=== PATIENT | male | born 1950 | race American Indian/Alaskan Native ===

== ENCOUNTER 2020-01-01 12:59 | Inpatient (IN) | payer MEDICARE ==
--- NOTE | 2020-01-01 13:17 | Emergency Department Report ---
ED General Adult HPI - General Chief complaint: Altered Mental Status Stated complaint: AMS/FEVER/COUGH Time Seen by Provider: 01/01/20 13:12 Source: EMS Mode of arrival: Wheelchair Limitations: Other - History of Present Illness Initial comments: Patient is a 69-year-old gentleman from [place] who is presenting with altered mental status. Paramedics were called to his home by unknown female who states that he is headache cough for approximately 2 weeks with fever for 1 week and was had some altered mental status starting this morning. Last known well time regarding the neurological deficits is unknown. Patient does not appear confused and is unable to give history. The patient is only able to tell me his name and that he is okay. Patient would not respond verbally to questions such as does he know the year, who he lives with, with the date is, or if he has had a cough recently. Patient will respond quickly to verbal commands related to moving his arms and legs. - Related Data Allergies Allergy/AdvReac Type Severity Reaction Status Date / Time Unable to Assess Allergy Unverified 01/01/20 13:49 ED Review of Systems ROS: Stated complaint: AMS/FEVER/COUGH Other details as noted in HPI Comment: Unobtainable due to pts medical conditions ED Physical Exam - General Limitations: Other General appearance: alert, in no apparent distress - Head Head exam: Present: atraumatic, normocephalic - Eye Eye exam: Present: normal appearance - ENT ENT exam: Present: mucous membranes moist - Neck Neck exam: Present: normal inspection - Respiratory Respiratory exam: Present: normal lung sounds bilaterally. Absent: respiratory distress, wheezes, rales, rhonchi - Cardiovascular Cardiovascular Exam: Present: regular rate, normal rhythm, normal heart sounds. Absent: systolic murmur, diastolic murmur, rubs, gallop - GI/Abdominal GI/Abdominal exam: Present: soft, normal bowel sounds. Absent: distended, tenderness, guarding, rebound - Rectal Rectal exam: Present: deferred - Extremities Exam Extremities exam: Present: normal inspection - Back Exam Back exam: Present: normal inspection - Neurological Exam Neurological exam: Present: alert, altered (Patient is very slow to respond to questions. Patient seems to only be able to answer certain questions). Absent: motor sensory deficit - Psychiatric Psychiatric exam: Present: normal affect, normal mood - Skin Skin exam: Present: warm, dry, intact, normal color. Absent: rash ED Course Vital Signs 01/01/20 01/01/20 01/01/20 13:14 13:15 13:31 Temperature Pulse Rate 60 71 Respiratory 20 22 Rate Blood Pressure 138/93 O2 Sat by Pulse 99 100 99 Oximetry 01/01/20 01/01/20 14:05 14:15 Temperature 98.2 F Pulse Rate 79 Respiratory 24 Rate Blood Pressure 146/95 O2 Sat by Pulse 99 Oximetry - Reevaluation(s) Reevaluation #1: 01/01/20 15:09 At this time rechecked the patient and he appears to be talking in full sentences at this time. Patient states he does not remember not being able to speak well on his arrival. Patient states that he is staying in hotel with a lady named Selena. We will attempt to contact her. He does admit to having a cough with some shortness of breath for the last several days. Regarding the patient's respiratory status he is in no respiratory distress at this time and is afebrile with a normal O2 saturation. Patient is stable in this regard. Patient to be admitted for observation secondary to likely TIA. Patient was having expressive aphasia on his arrival but is now showing improvement of his neurological symptoms. 01/01/20 15:19 ED Medical Decision Making - Lab Data Result diagrams: 01/01/20 13:28 01/01/20 13:28 Lab Results 01/01/20 01/01/20 01/01/20 Range/Units 13:28 13:28 13:28 WBC 4.2 L (4.5-11.0) K/mm3 RBC 4.33 (3.65-5.03) M/mm3 Hgb 12.8 (11.8-15.2) gm/dl Hct 37.7 (35.5-45.6) % MCV 87 (84-94) fl MCH 30 (28-32) pg MCHC 34 (32-34) % RDW 14.3 (13.2-15.2) % Plt Count 482 H (140-440) K/mm3 Lymph % (Auto) 22.5 (13.4-35.0) % Early % (Auto) 13.4 H (0.0-7.3) % Eos % (Auto) 0.7 (0.0-4.3) % Baso % (Auto) 0.9 (0.0-1.8) % Lymph # 1.0 L (1.2-5.4) K/mm3 Early # 0.6 (0.0-0.8) K/mm3 Eos # 0.0 (0.0-0.4) K/mm3 Baso # 0.0 (0.0-0.1) K/mm3 Seg Neutrophils % 62.5 (40.0-70.0) % Seg Neutrophils # 2.7 (1.8-7.7) K/mm3 PT 14.2 (12.2-14.9) Sec. INR 1.09 (0.87-1.13) APTT 28.4 (24.2-36.6) Sec. Thrombin Time 18.9 (15.1-19.6) Sec. Sodium (137-145) mmol/L Potassium (3.6-5.0) mmol/L Chloride (98-107) mmol/L Carbon Dioxide (22-30) mmol/L Anion Gap mmol/L BUN (9-20) mg/dL Creatinine (0.8-1.5) mg/dL Estimated GFR ml/min BUN/Creatinine Ratio % Glucose (75-100) mg/dL POC Glucose (70-105) Calcium (8.4-10.2) mg/dL Total Bilirubin (0.1-1.2) mg/dL AST (5-40) units/L ALT (7-56) units/L Alkaline Phosphatase (35-129) units/L Total Creatine Kinase 414 H (55-170) units/L CK-MB (CK-2) 6.8 H (0.0-4.0) ng/mL CK-MB (CK-2) Rel Index 1.6 (0-4) Troponin T 0.025 (0.00-0.029) ng/mL Total Protein (6.3-8.2) g/dL Albumin (3.9-5) g/dL Albumin/Globulin Ratio % Plasma/Serum Alcohol (0-0.07) % 01/01/20 01/01/20 01/01/20 Range/Units 13:28 13:28 13:29 WBC (4.5-11.0) K/mm3 RBC (3.65-5.03) M/mm3 Hgb (11.8-15.2) gm/dl Hct (35.5-45.6) % MCV (84-94) fl MCH (28-32) pg MCHC (32-34) % RDW (13.2-15.2) % Plt Count (140-440) K/mm3 Lymph % (Auto) (13.4-35.0) % Early % (Auto) (0.0-7.3) % Eos % (Auto) (0.0-4.3) % Baso % (Auto) (0.0-1.8) % Lymph # (1.2-5.4) K/mm3 Early # (0.0-0.8) K/mm3 Eos # (0.0-0.4) K/mm3 Baso # (0.0-0.1) K/mm3 Seg Neutrophils % (40.0-70.0) % Seg Neutrophils # (1.8-7.7) K/mm3 PT (12.2-14.9) Sec. INR (0.87-1.13) APTT (24.2-36.6) Sec. Thrombin Time (15.1-19.6) Sec. Sodium 138 (137-145) mmol/L Potassium 4.0 (3.6-5.0) mmol/L Chloride 100.9 (98-107) mmol/L Carbon Dioxide 21 L (22-30) mmol/L Anion Gap 20 mmol/L BUN 14 (9-20) mg/dL Creatinine 0.9 (0.8-1.5) mg/dL Estimated GFR > 60 ml/min BUN/Creatinine Ratio 16 % Glucose 115 H (75-100) mg/dL POC Glucose 102 (70-105) Calcium 9.4 (8.4-10.2) mg/dL Total Bilirubin 0.80 (0.1-1.2) mg/dL AST 26 (5-40) units/L ALT 29 (7-56) units/L Alkaline Phosphatase 49 (35-129) units/L Total Creatine Kinase (55-170) units/L CK-MB (CK-2) (0.0-4.0) ng/mL CK-MB (CK-2) Rel Index (0-4) Troponin T (0.00-0.029) ng/mL Total Protein 7.6 (6.3-8.2) g/dL Albumin 4.0 (3.9-5) g/dL Albumin/Globulin Ratio 1.1 % Plasma/Serum Alcohol < 0.01 (0-0.07) % - Radiology Data Ordering Physician: KRISTOPHER ARROYO MD Date of Service: 01/01/20 Procedure(s): XR chest 1V ap Accession Number(s): [id number] cc: KRISTOPHER ARROYO MD Fluoro Time In Minutes: CHEST 1 VIEW 01/01/2020 1:10 PM INDICATION / CLINICAL INFORMATION: cough, fever. COMPARISON: None available. FINDINGS: SUPPORT DEVICES: None. HEART / MEDIASTINUM: No significant abnormality. LUNGS / PLEURA: No significant pulmonary or pleural abnormality. No pneumothorax. ADDITIONAL FINDINGS: No significant additional findings. IMPRESSION: 1. No acute abnormality of the chest. Signer Name: Rajesh Diaz MD Signed: 01/01/2020 2:15 PM Workstation Name: [id number] Ordering Physician: KRISTOPHER ARROYO MD Date of Service: 01/01/20 Procedure(s): CT head/brain wo con Accession Number(s): [id number] cc: KRISTOPHER ARROYO MD CT head/brain wo con INDICATION / CLINICAL INFORMATION: 69 years Male; MAIN: CODE STROKE #[id number] Stroke symptoms EMS DID NOT BRING PT TO CT CT WAS DELAYED NO NURSE WITH THE PT--PT SEEMS ALTERED AND UNABLE TO ANSWER QUESTIONS. TECHNIQUE: Routine CT head without contrast. All CT scans at this location are performed using CT dose reduction for ALARA by means of automated exposure control. COMPARISON: None. FINDINGS: BRAIN / INTRACRANIAL CONTENTS: No acute hemorrhage, mass effect, midline shift, hydrocephalus, or acute, large territorial infarct. No chronic infarct or atrophy appreciated. Minimal, nonspecific white matter disease seen in the cerebral hemispheres. CRANIOCERVICAL JUNCTION: No significant abnormality. ORBITS: No significant abnormality of visualized orbits. SINUSES / MASTOIDS: No significant abnormality the visualized paranasal sinuses or mastoid air cells. ADDITIONAL FINDINGS: Normal atherosclerotic disease is seen in the minimal anterior circulation. IMPRESSION: 1. No focal mass, hemorrhage, hydrocephalus, or acute, large territorial infarct. This exam was performed as part of a code stroke protocol. The exam was completed on 01/01/2020 1:34 PM central standard time. The exam was reviewed at 1:[address] Arroyo was notified at 1:41 PM. Signer Name: Jamir Lundy MD, III Signed: 01/01/2020 2:42 PM Workstation Name: [id number] Critical care attestation.: If time is entered above; I have spent that time in minutes in the direct care of this critically ill patient, excluding procedure time. ED Disposition Clinical Impression: Altered mental status, TIA (transient ischemic attack) Disposition: DC-09 OP ADMIT IP TO THIS HOSP Is pt being admited?: Yes Does the pt Need Aspirin: Yes Condition: Stable Time of Disposition: 15:22 - Assessment Assessment Interval: Baseline - Level of Consciousness 1a. Level of Consciousness: alert/keenly responsive - LOC Questions 1b. LOC Questions: answers 1 question correctly - LOC Command 1c. LOC Commands: performs 1 task correctly - Best Gaze 2. Best Gaze: normal - Visual 3. Visual: no visual loss - Facial Palsy 4. Facial Palsy: normal symmetrical movement - Motor Arm 5a. Motor Arm Left: no drift 5b. Motor Arm Right: no drift - Motor Leg 6a. Motor Leg Left: no drift 6b. Motor Leg Right: no drift - Limb Ataxia 7. Limb Ataxia: absent - Sensory 8. Sensory: normal - Best Language 9. Best Language: mild/moderate aphasia - Dysarthria 10. Dysarthria: normal - Extinction and Inattention 11. Extinction/Inattention: no abnormality - Scoring Total Score: 3 Stroke Severity: Minor Stroke
--- NOTE | 2020-01-01 13:38 | Emergency Department Report ---
ED Neuro Deficit HPI - General Chief Complaint: Altered Mental Status Stated Complaint: AMS/FEVER/COUGH Time Seen by Provider: 01/01/20 13:12 Source: EMS Mode of arrival: Wheelchair Limitations: Altered Mental Status, Other - History of Present Illness Initial Comments: [facility] TeleStroke Metrics: LKW: Unknown Door Time: 1259 [facility] Contacted: 1311 [facility] at Bedside: 1316 NIHSS: 1324 Decision on Alteplase: Not to give as his last known well time is unknown. Interventional Candidate: Not a candidate as his symptoms are not consistent with a large vessel proximal occlusion. Chief Complaint: Altered mental status HPI: Asked to see this patient in emergent telemedicine consultation utilizing interactive audio and video technologies. Consultation was performed with assistance of ancillary / medical staff at bedside. Verbal consent to perform the examination with telemedicine was obtained. Patient agreed to proceed with the consultation for acute stroke protocol. 69-year-old -[place] male who comes to the emergency room by EMS for altered mental status, fever, and cough. Patient is slow to respond and is a poor historian. Patient denies any significant past medical history and states he does not take any medications. According to the ER team, the patient's lady friend had called EMS because the patient was found wandering and confused. She had reported to EMS that the patient had been having coughing for 2 weeks and fever x1 week. Patient's last known well time is unknown. When the patient initially arrived in the ER, he really did not talk much or interact much. There was some concerns for an expressive aphasia. Therefore a stroke alert was initiated. Currently on examination, the patient is awake. He was more slow to respond to things. He was able to tell us his name and half of his date of . He was able to follow some commands. PMH: Denies. SOC: Lives with some type of roommate. Negative for tobacco abuse. FMH: Negative for stroke. ROS: 13 point review of systems were reviewed with the patient, and are all negative with the exception of the aforementioned in the history of present illness. VS: EMS temperature was 97.4 F. Blood pressure 138/93 Exam: Patient is in no apparent distress. Patient appears as stated age. No obvious acute respiratory or cardiac distress. Patient is well groomed and well-nourished. 1a- LOC: Keenly responsive - 0 1b- LOC questions: Answers 1 question correctly - 1 1c- LOC commands- Performs 1 tasks correctly- 1 2- Gaze: Normal; no gaze paresis or gaze deviation - 0 3- Visual Lopez: normal, no Visual field deficit - 0 4- Facial movements: no facial palsy - 0 5- Upper limb motor - no drift - 0 6- Lower limb motor - no drift - 0 7- Limb Coordination: absent ataxia - 0 8- Sensory: no sensory loss - 0 9- Language - No aphasia - 0 10- Speech - No dysarthria -0 11- Neglect / Extinction - none found - 0 NIHSS score: 2 Diagnostic Data: Blood glucose 102 CT head pending Medical Data Reviewed: 1.Data?reviewed include clinical labs, radiology,?and medical tests; 2.Tests?results discussed w/performing or interpreting physician; 3.Obtaining/reviewing old medical records; 4.Obtaining?case history from another source; 5.Independent?review of image, tracing, or specimen. Medical Decision Making: - Extensive number of diagnosis or management options are considered below. - Extensive amount of complex data reviewed. - High risk of complication and/or morbidity or mortality are associated with differential diagnostic considerations below. - There may be?uncertain?outcome and increased probability of prolonged functional impairment or high probability of severe prolonged functional impairment associated with some of these differential diagnosis. Differential Diagnosis for Stroke: 1.?Cardioembolic?stroke 2. Small vessel disease/lacune 3. Thromboembolic, rgnnhz-to-sdbcmc mechanism 4.?Hypercoagulable?state-related infarct 5. Transient ischemic attack 6. Thrombotic mechanism, large artery disease Assessment: 1. Altered mental status Recommendations: Patient can be admitted to the hospital for further work-up of his symptoms. Metabolic and infectious work-up per primary team. Can check MRI brain without contrast to rule out any acute intracranial process. Check hemoglobin A1c, lipid panel, TSH, B12 level, and ammonia level. Consult PT, OT, and ST. Continue supportive care. Thank you for allowing [facility] to participate in the care of your patient. Please call me, Dr. Mccracken, with any questions at [phone]. Case discussed with the ER staff and Dr. Arroyo. Critical Care notation: I was called to see this critical patient emergently. I personally evaluated this critical patient for acute stroke evaluation, and determining their eligibility for IV Alteplase and interventional therapies. I have spent approximately 11 minutes with the patient, including time at bedside, time discussing the case with other physicians, reviewing plan of care, and time independently reviewing the records and scans. ED Review of Systems ROS: Stated complaint: AMS/FEVER/COUGH Other details as noted in HPI ED Neuro Physical Exam - General Limitations: Other Suspected Stroke: No - Lab Data Lab Results 01/01/20 Range/Units 13:29 POC Glucose 102 (70-105) Critical care attestation.: If time is entered above; I have spent that time in minutes in the direct care of this critically ill patient, excluding procedure time. ED Disposition Clinical Impression: Altered mental status Disposition: DC-09 OP ADMIT IP TO THIS HOSP Is pt being admited?: Yes Does the pt Need Aspirin: No Condition: Stable
[2020-01-01 13:51] LABS: Basophils % (Auto) 0.9 % (0.0-1.8); Eosinophils % (Auto) 0.7 % (0.0-4.3); Hematocrit 37.7 % (35.5-45.6); Hemoglobin 12.8 gm/dl (11.8-15.2); Lymphocytes % (Auto) 22.5 % (13.4-35.0); Mean Corpuscular HGB Conc 34 % (32-34); Mean Corpuscular Volume 87 fl (84-94); Monocytes # (Auto) 0.6 K/mm3 (0.0-0.8); Monocytes % (Auto) 13.4 % (0.0-7.3); Platelet Count 482 K/mm3 (140-440); Red Blood Count 4.33 M/mm3 (3.65-5.03); Red Cell Distribution Width 14.3 % (13.2-15.2)
[2020-01-01 14:00] LABS: INR 1.09 (0.87-1.13)
[2020-01-01 14:01] LABS: Partial Thromboplastin Time 28.4 Sec. (24.2-36.6); Thrombin Time 18.9 Sec. (15.1-19.6)
[2020-01-01 14:11] LABS: Creatine Kinase MB 6.8 ng/mL (0.0-4.0)
[2020-01-01 14:13] LABS: Alanine Aminotransferase 29 units/L (7-56); BUN/Creatinine Ratio 16; Blood Urea Nitrogen 14 mg/dL (9-20); Calcium 9.4 mg/dL (8.4-10.2); Hemolysis Index 10
--- NOTE | 2020-01-01 14:19 | XRay Report ---
CHEST 1 VIEW 01/01/2020 1:10 PM INDICATION / CLINICAL INFORMATION: cough, fever. COMPARISON: None available. FINDINGS: SUPPORT DEVICES: None. HEART / MEDIASTINUM: No significant abnormality. LUNGS / PLEURA: No significant pulmonary or pleural abnormality. No pneumothorax. ADDITIONAL FINDINGS: No significant additional findings. IMPRESSION: 1. No acute abnormality of the chest. Signer Name: Rajesh Diaz MD Signed: 01/01/2020 2:15 PM Workstation Name: [id number]
--- NOTE | 2020-01-01 14:46 | Cat Scan Report ---
CT head/brain wo con INDICATION / CLINICAL INFORMATION: 69 years Male; MAIN: CODE STROKE #[id number] Stroke symptoms EMS DID NOT BRING PT TO CT CT WAS DE LAYED NO NURSE WITH THE PT--PT SEEMS ALTERED AND UNABLE TO ANSWER QUESTIONS. TECHNIQUE: Routine CT head without contrast. All CT scans at this location are performed using CT dos e reduction for ALARA by means of automated exposure control. COMPARISON: None. FINDINGS: BRAIN / INTRACRANIAL CONTENTS: No acute hemorrhage, mass effect, midline shift, hydrocephalus, or acu te, large territorial infarct. No chronic infarct or atrophy appreciated. Minimal, nonspecific white matter disease seen in the cerebral hemispheres. CRANIOCERVICAL JUNCTION: No significant abnormality. ORBITS: No significant abnormality of visualized orbits. SINUSES / MASTOIDS: No significant abnormality the visualized paranasal sinuses or mastoid air cells. ADDITIONAL FINDINGS: Normal atherosclerotic disease is seen in the minimal anterior circulation. IMPRESSION: 1. No focal mass, hemorrhage, hydrocephalus, or acute, large territorial infarct. This exam was performed as part of a code stroke protocol. The exam was completed on 01/01/2020 1:34 P M central standard time. The exam was reviewed at 1:[address] Arroyo was notified at 1:41 PM. Signer Name: Jamir Lundy MD, III Signed: 01/01/2020 2:42 PM Workstation Name: [id number]
[2020-01-01] MEDS ORDERED: ASPIRIN 325 MG TAB PO ONE (15:21)
[2020-01-01] MEDS ORDERED: ACETAMINOPHEN 325 MG TAB PO PRN (16:04)
[2020-01-01] MEDS ORDERED: ONDANSETRON 4 MG/2 ML INJ IV PRN (16:04)
--- NOTE | 2020-01-01 18:17 | History and Physical Report ---
History of Present Illness Date of admission: 01/01/20 16:04 Chief complaint: He is confused and forgetful History of present illness: 69 YO Male with Dementia presents to ED for evaluation. Patient is ambulating in his room at the time of my evaluation. Patient states that he "came to the hospital to get my urine checked". Patient is cooperative but exhibits difficulty with short-term memory. Patient reports that he was seen and evaluated by his primary care doctor approximately 1 week ago and is not currently taking any medication. EMS was notified by patient's roommate for increased confusion and forgetfulness over the past week with persistent symptoms over the same timeframe. Upon arrival the patient was found to be in distress and subsequently transported to [facility] for further care and evaluation. Patient seen and evaluated in the emergency department. Lab and imaging studies reviewed. Patient found to have symptoms consistent with encephalopathy versus senile dementia. Patient placed in observation status and admitted to [facility] unit. No prior admission for review. No medication listed at time of admission for reconciliation. Patient denies fever, chills, chest pain, palpitations, shortness of breath, skin rash, or recent ill contacts. Advanced care planning conducted in ED. Past History Past Medical History: No medical history, other (None reported) Past Surgical History: No surgical history, Other (Reviewed) Social history: single. denies: smoking, alcohol abuse, prescription drug abuse Family history: no significant family history (Reviewed) Medications and Allergies Allergies Allergy/AdvReac Type Severity Reaction Status Date / Time Unable to Assess Allergy Unverified 01/01/20 13:49 Home Medications Medication Instructions Recorded Confirmed Last Taken Type Unobtainable 01/01/20 01/01/20 Unknown History Active Meds: Active Medications Acetaminophen (Tylenol) 650 mg PO Q4H PRN PRN Reason: Pain MILD(1-3)/Fever >100.5/VALDEZ Ondansetron HCl (Zofran) 4 mg IV Q8H PRN PRN Reason: Nausea And Vomiting Sodium Chloride (Sodium Chloride Flush Syringe 10 Ml) 10 ml IV BID BROCK Sodium Chloride (Sodium Chloride Flush Syringe 10 Ml) 10 ml IV PRN PRN PRN Reason: LINE FLUSH Review of Systems ROS unobtainable: due to mental status Exam - Constitutional Vitals: Temp Pulse Resp BP Pulse Ox 98.2 F 70 21 156/101 99 01/01/20 14:05 01/01/20 16:15 01/01/20 16:15 01/01/20 16:15 01/01/20 16:15 General appearance: Present: no acute distress, well-nourished - EENT Eyes: Present: PERRL ENT: hearing intact, clear oral mucosa - Neck Neck: Present: supple, normal ROM - Respiratory Respiratory effort: normal Respiratory: bilateral: CTA - Cardiovascular Heart Sounds: Present: S1 & S2. Absent: rub, click - Extremities Extremities: pulses symmetrical, No edema Peripheral Pulses: within normal limits - Abdominal General gastrointestinal: Present: soft, non-tender, non-distended, normal bowel sounds Male genitourinary: Present: normal - Integumentary Integumentary: Present: clear, warm, dry - Musculoskeletal Musculoskeletal: gait normal, strength equal bilaterally - Psychiatric Psychiatric: appropriate mood/affect, intact judgment & insight - Neurologic Neurologic: CNII-XII intact, moves all extremities Results - Labs CBC & Chem 7: 01/01/20 13:28 01/01/20 13:28 Labs: Abnormal lab results 01/01/20 01/01/20 01/01/20 Range/Units 13:28 13:28 13:28 WBC 4.2 L (4.5-11.0) K/mm3 Plt Count 482 H (140-440) K/mm3 [place] % (Auto) 13.4 H (0.0-7.3) % Lymph # 1.0 L (1.2-5.4) K/mm3 Carbon Dioxide 21 L (22-30) mmol/L Glucose 115 H (75-100) mg/dL Total Creatine Kinase 414 H (55-170) units/L CK-MB (CK-2) 6.8 H (0.0-4.0) ng/mL Assessment and Plan - Patient Problems (1) Encephalopathy Current Visit: Yes Status: Acute Plan to address problem: CT head, neuro check, aspiration precautions, thyroid panel, CBC, CMP, urinalysis. (2) Senile dementia Current Visit: Yes Status: Acute Qualifiers: Dementia behavioral disturbance: without behavioral disturbance Qualified C ode(s): F03.90 - Unspecified dementia without behavioral disturbance Plan to address problem: Supportive care, initiate Aricept therapy. (3) DVT prophylaxis Current Visit: Yes Status: Acute Plan to address problem: SCD to bilateral lower extremities while in bed, patient is ambulatory.
[2020-01-01 20:47] LABS: Chol/HDL Ratio 4.12 %
[2020-01-01 20:57] LABS: Free T4 (Free Thyroxine) 1.38 ng/dL (0.76-1.46)
[2020-01-01 23:07] LABS: C-Reactive Protein 0.1 mg/dL (0.00-1.30)
[2020-01-01] MEDS: DONEPEZIL 5 MG TAB PO SCH (23:10)
--- NOTE | 2020-01-02 08:19 | Progress Note ---
Assessment and Plan Assessment and plan: Encephalopathy CT head, neuro check, aspiration precautions, thyroid panel, CBC, CMP, urinalysis. Senile dementia Supportive care, initiate Aricept therapy. COVID-19 suspected Patient reportedly with cough and transferred to special unit. Check with nurses for details. DVT prophylaxis SCD to bilateral lower extremities while in bed, patient is ambulatory. History Interval history: No new issues overnight Hospitalist Physical - Constitutional Vitals: Temp Pulse Resp BP Pulse Ox 98.5 F 66 18 128/87 94 01/02/20 05:31 01/02/20 05:31 01/02/20 05:31 01/02/20 05:31 01/02/20 05:31 General appearance: Present: no acute distress, well-nourished - EENT Eyes: Present: PERRL, EOM intact ENT: hearing intact, clear oral mucosa, dentition normal - Neck Neck: Present: supple, normal ROM - Respiratory Respiratory effort: normal Respiratory: bilateral: CTA - Cardiovascular Rhythm: regular Heart Sounds: Present: S1 & S2. Absent: gallop, rub - Extremities Extremities: no ischemia, No edema, Full ROM - Abdominal General gastrointestinal: soft, non-tender, non-distended, normal bowel sounds - Integumentary Integumentary: Present: clear, warm, dry - Neurologic Neurologic: CNII-XII intact, moves all extremities Results - Labs CBC & Chem 7: 01/01/20 13:28 01/01/20 22:23 Labs: Laboratory Last Values WBC 4.2 K/mm3 (4.5-11.0) L 01/01/20 13:28 RBC 4.33 M/mm3 (3.65-5.03) 01/01/20 13:28 Hgb 12.8 gm/dl (11.8-15.2) 01/01/20 13:28 Hct 37.7 % (35.5-45.6) 01/01/20 13:28 MCV 87 fl (84-94) 01/01/20 13:28 MCH 30 pg (28-32) 01/01/20 13:28 MCHC 34 % (32-34) 01/01/20 13:28 RDW 14.3 % (13.2-15.2) 01/01/20 13:28 Plt Count 482 K/mm3 (140-440) H 01/01/20 13:28 Lymph % (Auto) 22.5 % (13.4-35.0) 01/01/20 13:28 [place] % (Auto) 13.4 % (0.0-7.3) H 01/01/20 13:28 Eos % (Auto) 0.7 % (0.0-4.3) 01/01/20 13:28 Baso % (Auto) 0.9 % (0.0-1.8) 01/01/20 13:28 Lymph # 1.0 K/mm3 (1.2-5.4) L 01/01/20 13:28 [place] # 0.6 K/mm3 (0.0-0.8) 01/01/20 13:28 Eos # 0.0 K/mm3 (0.0-0.4) 01/01/20 13:28 Baso # 0.0 K/mm3 (0.0-0.1) 01/01/20 13:28 Seg Neutrophils % 62.5 % (40.0-70.0) 01/01/20 13:28 Seg Neutrophils # 2.7 K/mm3 (1.8-7.7) 01/01/20 13:28 PT 14.2 Sec. (12.2-14.9) 01/01/20 13:28 INR 1.09 (0.87-1.13) 01/01/20 13:28 APTT 28.4 Sec. (24.2-36.6) 01/01/20 13:28 Thrombin Time 18.9 Sec. (15.1-19.6) 01/01/20 13:28 D-Dimer 404.12 ng/mlDDU (0-234) H 01/01/20 22:23 Sodium 138 mmol/L (137-145) 01/01/20 13:28 Potassium 4.0 mmol/L (3.6-5.0) 01/01/20 13:28 Chloride 100.9 mmol/L (98-107) 01/01/20 13:28 Carbon Dioxide 21 mmol/L (22-30) L 01/01/20 13:28 Anion Gap 20 mmol/L 01/01/20 13:28 BUN 14 mg/dL (9-20) 01/01/20 13:28 Creatinine 0.9 mg/dL (0.8-1.5) 01/01/20 13:28 Estimated GFR > 60 ml/min 01/01/20 13:28 BUN/Creatinine Ratio 16 % 01/01/20 13:28 Glucose 141 mg/dL (75-100) H 01/01/20 22:23 POC Glucose 114 (70-105) H 01/01/20 22:31 Calcium 9.4 mg/dL (8.4-10.2) 01/01/20 13:28 Ferritin 909.6 ng/mL (13.0-400.0) H 01/01/20 22:23 Total Bilirubin 0.80 mg/dL (0.1-1.2) 01/01/20 13:28 AST 26 units/L (5-40) 01/01/20 13:28 ALT 29 units/L (7-56) 01/01/20 13:28 Alkaline Phosphatase 49 units/L (35-129) 01/01/20 13:28 Lactate Dehydrogenase 397 units/L (91-180) H 01/01/20 22:23 Total Creatine Kinase 414 units/L (55-170) H 01/01/20 13:28 CK-MB (CK-2) 6.8 ng/mL (0.0-4.0) H 01/01/20 13:28 CK-MB (CK-2) Rel Index 1.6 (0-4) 01/01/20 13:28 Troponin T 0.025 ng/mL (0.00-0.029) 01/01/20 13:28 C-Reactive Protein 0.10 mg/dL (0.00-1.30) 01/01/20 22:23 Total Protein 7.6 g/dL (6.3-8.2) 01/01/20 13:28 Albumin 4.0 g/dL (3.9-5) 01/01/20 13:28 Albumin/Globulin Ratio 1.1 % 01/01/20 13:28 Triglycerides 74 mg/dL (2-149) 01/01/20 13:28 Cholesterol 169 mg/dL (50-199) 01/01/20 13:28 LDL Cholesterol Direct 119 mg/dL (50-130) 01/01/20 13:28 HDL Cholesterol 41 mg/dL (40-59) 01/01/20 13:28 Cholesterol/HDL Ratio 4.12 % 01/01/20 13:28 Procalcitonin < 0.05 ng/mL (<0.15) 01/01/20 22:23 TSH 1.630 mlU/mL (0.270-4.200) 01/01/20 13:28 Free T4 1.38 ng/dL (0.76-1.46) 01/01/20 13:28 Plasma/Serum Alcohol < 0.01 % (0-0.07) 01/01/20 13:28 Johns/IV: Voiding Method Toilet IV Catheter Type [Left INT / Saline Lock Antecubital] Active Medications - Current Medications Current Medications: Generic Name Dose Route Start Last Admin Trade Name Freq PRN Reason Stop Dose Admin Acetaminophen 650 mg 01/01/20 16:04 Tylenol PO Q4H PRN Pain MILD(1-3)/Fever >100.5/VALDEZ Donepezil HCl 5 mg 01/01/20 22:00 01/01/20 23:10 Aricept PO 5 mg QHS BROCK Administration Ondansetron HCl 4 mg 01/01/20 16:04 Zofran IV Q8H PRN Nausea And Vomiting Sodium Chloride 10 ml 01/01/20 22:00 01/01/20 23:10 Sodium Chloride Flush Syringe 10 Ml IV 10 ml BID BROCK Administration Sodium Chloride 10 ml 01/01/20 16:04 Sodium Chloride Flush Syringe 10 Ml IV PRN PRN LINE FLUSH
[2020-01-02] MEDS: amLODIPine 5 MG TAB PO SCH (16:53)
[2020-01-02] MEDS: DONEPEZIL 5 MG TAB PO SCH (22:05)
[2020-01-03] MEDS ORDERED: LORazepam 2 MG/ML VIAL IV ONE (01:15)
--- NOTE | 2020-01-03 09:03 | Progress Note ---
Assessment and Plan Assessment and plan: Encephalopathy CT head, neuro check, aspiration precautions, thyroid panel, CBC, CMP, urinalysis. Senile dementia Supportive care, initiate Aricept therapy. COVID-19 suspected Patient reportedly with cough and transferred to special unit. Check with nurses for details. DVT prophylaxis SCD to bilateral lower extremities while in bed, patient is ambulatory. 01/03/2020. The patient is satting 98% on room air. Inflammatory markers are mildly elevated with d-dimer 404, ferritin 909, LDH 397 and CRP normal. COVID suspicion low. We will hold on ID consultation at this time. Await COVID-19 testing. Consult neurology for encephalopathy. CT scan revealed no acute hemorrhage, mass-effect, midline shift, hydrocephalus or acute infarct. History Interval history: No new issues overnight Hospitalist Physical - Constitutional Vitals: Temp Pulse Resp BP Pulse Ox 97.8 F 94 H 18 125/82 98 01/03/20 06:44 01/03/20 06:44 01/03/20 06:44 01/03/20 06:44 01/03/20 08:25 General appearance: Present: no acute distress, well-nourished - EENT Eyes: Present: PERRL, EOM intact ENT: hearing intact, clear oral mucosa, dentition normal - Neck Neck: Present: supple, normal ROM - Respiratory Respiratory effort: normal Respiratory: bilateral: CTA - Cardiovascular Rhythm: regular Heart Sounds: Present: S1 & S2. Absent: gallop, rub - Extremities Extremities: no ischemia, No edema, Full ROM - Abdominal General gastrointestinal: soft, non-tender, non-distended, normal bowel sounds - Integumentary Integumentary: Present: clear, warm, dry - Neurologic Neurologic: CNII-XII intact, moves all extremities Results - Labs CBC & Chem 7: 01/01/20 13:28 01/01/20 22:23 Labs: Laboratory Last Values WBC 4.2 K/mm3 (4.5-11.0) L 01/01/20 13:28 RBC 4.33 M/mm3 (3.65-5.03) 01/01/20 13:28 Hgb 12.8 gm/dl (11.8-15.2) 01/01/20 13:28 Hct 37.7 % (35.5-45.6) 01/01/20 13:28 MCV 87 fl (84-94) 01/01/20 13:28 MCH 30 pg (28-32) 01/01/20 13:28 MCHC 34 % (32-34) 01/01/20 13:28 RDW 14.3 % (13.2-15.2) 01/01/20 13:28 Plt Count 482 K/mm3 (140-440) H 01/01/20 13:28 Lymph % (Auto) 22.5 % (13.4-35.0) 01/01/20 13:28 [place] % (Auto) 13.4 % (0.0-7.3) H 01/01/20 13:28 Eos % (Auto) 0.7 % (0.0-4.3) 01/01/20 13:28 Baso % (Auto) 0.9 % (0.0-1.8) 01/01/20 13:28 Lymph # 1.0 K/mm3 (1.2-5.4) L 01/01/20 13:28 [place] # 0.6 K/mm3 (0.0-0.8) 01/01/20 13:28 Eos # 0.0 K/mm3 (0.0-0.4) 01/01/20 13:28 Baso # 0.0 K/mm3 (0.0-0.1) 01/01/20 13:28 Seg Neutrophils % 62.5 % (40.0-70.0) 01/01/20 13:28 Seg Neutrophils # 2.7 K/mm3 (1.8-7.7) 01/01/20 13:28 PT 14.2 Sec. (12.2-14.9) 01/01/20 13:28 INR 1.09 (0.87-1.13) 01/01/20 13:28 APTT 28.4 Sec. (24.2-36.6) 01/01/20 13:28 Thrombin Time 18.9 Sec. (15.1-19.6) 01/01/20 13:28 D-Dimer 404.12 ng/mlDDU (0-234) H 01/01/20 22:23 Sodium 138 mmol/L (137-145) 01/01/20 13:28 Potassium 4.0 mmol/L (3.6-5.0) 01/01/20 13:28 Chloride 100.9 mmol/L (98-107) 01/01/20 13:28 Carbon Dioxide 21 mmol/L (22-30) L 01/01/20 13:28 Anion Gap 20 mmol/L 01/01/20 13:28 BUN 14 mg/dL (9-20) 01/01/20 13:28 Creatinine 0.9 mg/dL (0.8-1.5) 01/01/20 13:28 Estimated GFR > 60 ml/min 01/01/20 13:28 BUN/Creatinine Ratio 16 % 01/01/20 13:28 Glucose 141 mg/dL (75-100) H 01/01/20 22:23 POC Glucose 164 (70-105) H 01/02/20 23:44 Calcium 9.4 mg/dL (8.4-10.2) 01/01/20 13:28 Ferritin 909.6 ng/mL (13.0-400.0) H 01/01/20 22:23 Total Bilirubin 0.80 mg/dL (0.1-1.2) 01/01/20 13:28 AST 26 units/L (5-40) 01/01/20 13:28 ALT 29 units/L (7-56) 01/01/20 13:28 Alkaline Phosphatase 49 units/L (35-129) 01/01/20 13:28 Ammonia 27.0 umol/L (25-60) 01/02/20 08:26 Lactate Dehydrogenase 397 units/L (91-180) H 01/01/20 22:23 Total Creatine Kinase 414 units/L (55-170) H 01/01/20 13:28 CK-MB (CK-2) 6.8 ng/mL (0.0-4.0) H 01/01/20 13:28 CK-MB (CK-2) Rel Index 1.6 (0-4) 01/01/20 13:28 Troponin T 0.025 ng/mL (0.00-0.029) 01/01/20 13:28 C-Reactive Protein 0.10 mg/dL (0.00-1.30) 01/01/20 22:23 Total Protein 7.6 g/dL (6.3-8.2) 01/01/20 13:28 Albumin 4.0 g/dL (3.9-5) 01/01/20 13:28 Albumin/Globulin Ratio 1.1 % 01/01/20 13:28 Triglycerides 74 mg/dL (2-149) 01/01/20 13:28 Cholesterol 169 mg/dL (50-199) 01/01/20 13:28 LDL Cholesterol Direct 119 mg/dL (50-130) 01/01/20 13:28 HDL Cholesterol 41 mg/dL (40-59) 01/01/20 13:28 Cholesterol/HDL Ratio 4.12 % 01/01/20 13:28 Vitamin B12 550.7 pg/mL (211-911) 01/02/20 08: Folate 10.77 ng/mL (7.3-26.0) 01/02/20 08: Procalcitonin < 0.05 ng/mL (<0.15) 01/01/20 22:23 TSH 1.130 mlU/mL (0.270-4.200) 01/02/20 08: Free T4 1.38 ng/dL (0.76-1.46) 01/01/20 13:28 Plasma/Serum Alcohol < 0.01 % (0-0.07) 01/01/20 13:28 Jonhs/IV: Voiding Method Toilet IV Catheter Type [Left INT / Saline Lock Antecubital] Active Medications - Current Medications Current Medications: Generic Name Dose Route Start Last Admin Trade Name Freq PRN Reason Stop Dose Admin Acetaminophen 650 mg 01/01/20 16:04 Tylenol PO Q4H PRN Pain MILD(1-3)/Fever >100.5/VALDEZ Amlodipine Besylate 5 mg 01/02/20 17:00 01/02/20 16:53 Amlodipine PO 5 mg QDAY BROCK Administration Donepezil HCl 5 mg 01/01/20 22:00 01/02/20 22:05 Aricept PO 5 mg QHS BROCK Administration Ondansetron HCl 4 mg 01/01/20 16:04 Zofran IV Q8H PRN Nausea And Vomiting Sodium Chloride 10 ml 01/01/20 22:00 01/02/20 22:05 Sodium Chloride Flush Syringe 10 Ml IV 10 ml BID BROCK Administration Sodium Chloride 10 ml 01/01/20 16:04 Sodium Chloride Flush Syringe 10 Ml IV PRN PRN LINE FLUSH
[2020-01-03] MEDS: amLODIPine 5 MG TAB PO SCH (09:57)
--- NOTE | 2020-01-03 12:43 | Consultation ---
Past History Past Medical History: No medical history, other (None reported) Past Surgical History: No surgical history, Other (Reviewed) Social history: single. denies: smoking, alcohol abuse, prescription drug abuse Family history: no significant family history (Reviewed) Medications and Allergies Allergies Allergy/AdvReac Type Severity Reaction Status Date / Time Unable to Assess Allergy Unverified 01/01/20 13:49 Home Medications Medication Instructions Recorded Confirmed Last Taken Type amLODIPine [Norvasc] 5 mg PO DAILY 01/02/20 01/02/20 Unknown History Active Meds: Active Medications Acetaminophen (Tylenol) 650 mg PO Q4H PRN PRN Reason: Pain MILD(1-3)/Fever >100.5/VALDEZ Amlodipine Besylate (Amlodipine) 5 mg PO QDAY [facility] Last Admin: 01/03/20 09:57 Dose: 5 mg Documented by: Donepezil HCl (Aricept) 5 mg PO QHS [facility] Last Admin: 01/02/20 22:05 Dose: 5 mg Documented by: Ondansetron HCl (Zofran) 4 mg IV Q8H PRN PRN Reason: Nausea And Vomiting Sodium Chloride (Sodium Chloride Flush Syringe 10 Ml) 10 ml IV BID [facility] Last Admin: 01/03/20 09:57 Dose: 10 ml Documented by: Sodium Chloride (Sodium Chloride Flush Syringe 10 Ml) 10 ml IV PRN PRN PRN Reason: LINE FLUSH Physical Examination - Vital Signs Vital Signs: Vital Signs Pulse Ox 99 01/01/20 13:14 Results - Laboratory Findings CBC and BMP: 01/01/20 13:28 01/01/20 22:23 Abnormal Lab Findings: Abnormal Labs 01/01/20 01/01/20 01/01/20 13:28 13:28 13:28 WBC 4.2 L Plt Count 482 H [place] % (Auto) 13.4 H Lymph # 1.0 L D-Dimer Carbon Dioxide 21 L Glucose 115 H POC Glucose Ferritin Lactate Dehydrogenase Total Creatine Kinase 414 H CK-MB (CK-2) 6.8 H 01/01/20 01/01/20 01/01/20 22:23 22:23 22:23 WBC Plt Count [place] % (Auto) Lymph # D-Dimer 404.12 H Carbon Dioxide Glucose 141 H POC Glucose Ferritin 909.6 H Lactate Dehydrogenase 397 H Total Creatine Kinase CK-MB (CK-2) 01/01/20 01/02/20 22:31 23:44 WBC Plt Count [place] % (Auto) Lymph # D-Dimer Carbon Dioxide Glucose POC Glucose 114 H 164 H Ferritin Lactate Dehydrogenase Total Creatine Kinase CK-MB (CK-2) Assessment and Plan 69 YR OLD MALE WITH HIST OF HYPERTENSION FOR WHICH HE WAS NOT TAKING MEDICATION REGULARLY WHO MOVED FROM [place] TO [place] ABOUT 6 MONTHS AGO. PATIENT LIVES WITH ROOM MATES IN A APARTMENT. PATIENT WAS REPORTED TO HAVE COUGH FOR TWO WEEKS AND FEVER FOR ONE WEEK PRIOR TO DEVELOPING AN EPISODE OF WANDERING AND CONFUSION WHICH WAS REPORTED BY HIS LADY FRIEND.UPON ARRIVING AT ER HE WAS FOUND LITTLE CONFUSED,NOT ANSWERING ALL QUESTIONS BY THE EVALUATING PHYSICIAN. HE WAS BRANDIE LUATED FOLLOWING STROKE PROTOCOL AND TPA WAS NOT GIVEN. 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 PATIENT STATES THAT HE HAS BEEN DRINKING WINE FOR A LONG TIME, BUT HAS NEVER BEEN AN ALCOHOL ABUSER. P[ATIENT ALSO COMPLAINS OF INTERMITTENT COLD FEELING ON THE HEAD. PHYSICAL EXAMINATION. GENERAL- IN NO ACUTE DISTRESS. AFFECT IS DEPRESSED. HEART-NORMAL MENTAL STATUS- ALERT AND ORIENTED TO TIME ,PLACE AND PERSON, KNOWS THE YEAR,KNOWS WHO HE IS ,WHERE HE IS,GAVE A GOOD HISTORY OF HIS PAST AND IS AWARE OF HIS SOCIAL AND FAMILY DYNAMICS.HAS IMPAIRED SHORT TERM MEMORY, RECALL WAS 1/3 IN 3 MINUTES, HAS DIFFICULTY WITH ATTENTION AND CONCENTRATION, CALCULATION WAS NORMAL,JUDGEMENT WAS NORMAL. MOTOR- NORMAL STRENGTH IN ALL FOUR EXTREMITIES COORDINATION- FINGER TO NOSE WAS NORMAL, HEEL TO JIMENEZ WAS SLIGHTLY DYSMETRIC SENSORY. SENSORY WAS GROSSLY INTACT REFLEXES- NORMAL. GAIT- COULD NOT DO TANDEM GAIT, GAIT IS LITTLE WIDE BASED. IMPRESSION. 1.PATIENT SEEMS TO HAVE CEREBELLAR VERMIAN INDUCED MILD GAIT [place] WHICH IS RELATED TO HIS CHRONIC WINE USE OVER THE YEARS AND ALSO HAS DEMENTIA RELATED TO MOST LIKELY DEPRESSION SUPER IMPOSED ON CHRONIC ALCOHOLIC DEMENTIA. RECOMMEND. 1. PATIENT WAS COUNSELED ABOUT QUIT DRINKING WINE,HE VOICED UNDERSTANDING 2. ARICEPT 5MG PO QD 3., SETRALINE 25 MG PO QAM. 4. VITAMIN BCOMPLEX WITH THIAMINE 100MG QD AFTER LUNCH OR DINNER. 5. FOLLOW UP ENDOCRINE EVALUATION FOR INTERMITTENT COLD FEELING ON THE HEAD.
[2020-01-03] MEDS: DONEPEZIL 5 MG TAB PO SCH (22:17)
[2020-01-04 05:42] LABS: Hemoglobin 12.8 gm/dl (11.8-15.2); Mean Corpuscular HGB Conc 34 % (32-34); Mean Corpuscular Volume 86 fl (84-94); Platelet Count 374 K/mm3 (140-440); Red Blood Count 4.44 M/mm3 (3.65-5.03); Red Cell Distribution Width 14.3 % (13.2-15.2)
[2020-01-04 06:04] LABS: BUN/Creatinine Ratio 18; Blood Urea Nitrogen 14 mg/dL (9-20); Calcium 9.2 mg/dL (8.4-10.2); Hemolysis Index 0
[2020-01-04 06:58] LABS: Basophils % (Manual) 0 % (0.0-1.8); Total Cells Counted 100
[2020-01-04 06:59] LABS: Burr Cells Rare
[2020-01-04 07:00] LABS: Platelet Estimate Consistent w Auto
[2020-01-04] MEDS: amLODIPine 5 MG TAB PO SCH (09:25)
[2020-01-04] MEDS ORDERED: SERTRALINE 25 MG TAB PO SCH (10:00)
--- NOTE | 2020-01-04 11:43 | Discharge Summary ---
Providers - Providers Date of Admission: 01/01/20 16:04 Date of discharge: 01/04/20 Attending physician: MARY PEREZ 01/03/20 09:03 Consult to Physician [CONS] Routine Comment: Consulting Provider: HAYLIE LOBATO Physician Instructions: Reason For Exam: encephalopathy Primary care physician: MANAGEMENT PROFESSOR Hospitalization Condition: Fair Hospital course: Patient is 69 yo brought in for altered mental status, fever, cough . Patient reports that he was seen and evaluated by his primary care doctor approximately 1 week ago and is not currently taking any medication. EMS was notified by patient's roommate for increased confusion and forgetfulness over the past week with persistent symptoms over the same timeframe. Patient seen and evaluated in the emergency department. CXR was unremarkable. Patient found to have symptoms consistent with encephalopathy. Patient was admitted for further evaluation of altered mental status and to r/o Covid -19 because of fever and cough. He was evaluated bny Neurologist. He had negative test for Covid-19 and was subsequently discharged on Aricept as recommended by Neurologist. Total time spent on discharge, 35 mins Disposition: DC-01 TO HOME OR SELFCARE - Discharge Diagnoses (1) Acute metabolic encephalopathy Status: Acute (2) Dementia Status: Acute Core Measure Documentation - Palliative Care Palliative Care/ Comfort Measures: Not Applicable - Core Measures Any of the following diagnoses?: none Exam - Constitutional Vitals: Temp Pulse Resp BP Pulse Ox 97.8 F 73 20 124/89 98 01/04/20 06:20 01/04/20 06:20 01/04/20 06:20 01/04/20 06:20 01/04/20 09:30 Plan Activity: no restrictions Diet: low fat, low cholesterol, low salt Plan of Treatment: 1.Follow up with PCP in 1 week Follow up with: PRIMARY CAREMD [Primary Care Provider] - 7 Days Prescriptions: B Complex W/Vitamin C [Allbee with C] 1 each PO QPM #30 tablet amLODIPine 5 mg PO DAILY #30 amLODIPine 5 mg PO DAILY #30 tab donepeziL [Aricept] 5 mg PO QHS #30 tablet Thiamine [Vitamin B-1] 100 mg PO QPM #30 tablet Sertraline [Zoloft] 25 mg PO QAM #30 tablet
[2020-01-04 18:00] VITALS: BP 118/84
[2020-01-04] MEDS ORDERED: THIAMINE 100 MG TAB PO SCH (18:00)
[2020-01-04] MEDS ORDERED: B COMPLEX W/VITAMIN C TAB PO SCH (18:00)
== END 2020-01-04 18:12 | disposition home or self-care (01) | DRG 72 ==
LOC: ED 12:59 → OBSVTOIN 16:04 → 4A 16:04 → 3A 22:05
PROVIDERS: ADMIT Internal Medicine; ATTEND Internal Medicine
DX: G93.41 Metabolic encephalopathy (principal); F03.90 Unspecified dementia, unspecified severity, without behavioral disturbance, psychotic disturbance, mood disturbance, and anxiety; R26.0 Ataxic gait; Z03.818 Encounter for observation for suspected exposure to other biological agents ruled out
CPT/HCPCS: 36415; 70450; 71045; 80048; 80053; 80061; 80320; 82140; 82550; 82553; 82607; 82728; 82747; 82947; 82962; 83615; 84145; 84439; 84443; 84484; 85007; 85025; 85379; 85610; 85670; 85730; 86140; 87635; 93005; 94760; G0378; G0480; J2060